=== PATIENT | female | born 1975 | race Caucasian/White ===

== ENCOUNTER 2018-06-03 14:03 | Emergency (ER) | payer OTHER ==
[2018-06-03 14:48] VITALS: BP 121/76
--- NOTE | 2018-06-03 15:01 | ED ---
Influenza-Like Illness - HPI Summary HPI Summary: Patient is a 42-year-old female with a history of "brain lesions." She states every time she gets a cold, she develops headache and had pain to the area of the lesions. She states she feels the lesions are in the occipital area as this is where she has majority of her pain when she has a cold. She does endorse sinus pressure and pain, however this has resolved. This morning she developed a cold sore and states this tends to happen when she has bad cold. She denies any fevers, sweats, chills. She denies any weakness. She endorses a 1/10 headache, intermittent and aching. - History of Current Complaint Chief Complaint: EDGeneral Time Seen by Provider: 06/03/18 14:18 Hx Obtained From: Patient Onset/Duration: Sudden Onset Severity: Mild Associated Signs & Symptoms: Headache - Risk Factors Influenza Risk Factors: Negative - Allergy/Home Medications Allergies/Adverse Reactions: Allergies Allergy/AdvReac Type Severity Reaction Status Date / Time clarithromycin Allergy Anaphylatic Verified 06/03/18 14:16 Shock levofloxacin [From Levaquin] Allergy See Comment Verified 06/03/18 14:16 sertraline [From Zoloft] Allergy GI Upset Verified 06/03/18 14:16 PMH/Surg Hx/FS Hx/Imm Hx Previously Healthy: Yes Infectious Disease History: No Infectious Disease History: Denies: Traveled Outside the [place] in Last 30 Days - Social History Occupation: Employed Full-time Lives: With Family Alcohol Use: None Hx Substance Use: No Substance Use Type: Reports: None Hx Tobacco Use: No Smoking Status (MU): Never Smoked Tobacco Review of Systems Negative: Fever, Chills, Fatigue, Skin Diaphoresis Negative: Palpitations, Chest Pain Negative: Shortness Of Breath, Cough Genitourinary: Negative Positive: no symptoms reported, see HPI Negative: Arthralgia, Myalgia Skin: Negative All Other Systems Reviewed And Are Negative: Yes Physical Exam Triage Information Reviewed: Yes Vital Signs On Initial Exam: Initial Vitals Temp Pulse Resp BP Pulse Ox 98.4 F 86 17 129/76 98 06/03/18 14:08 06/03/18 14:08 06/03/18 14:08 06/03/18 14:08 06/03/18 14:08 Vital Signs Reviewed: Yes Appearance: Positive: Well-Appearing, Well-Nourished Skin: Positive: Warm, Skin Color Reflects Adequate Perfusion Head/Face: Positive: Normal Head/Face Inspection Eyes: Positive: EOMI, HILL, Conjunctiva Clear ENT: Positive: TMs normal, Other - left upper lip cold sore. Negative: Pharyngeal erythema, Nasal congestion, Nasal drainage, Tonsillar swelling, Tonsillar exudate, Hoarse voice, Dental tenderness, Sinus tenderness Neck: Positive: Supple, Nontender Respiratory/Lung Sounds: Positive: Clear to Auscultation, Breath Sounds Present Cardiovascular: Positive: RRR, Pulses are Symmetrical in both Upper and Lower Extremities Musculoskeletal: Positive: Normal, Strength/ROM Intact Neurological: Positive: Speech Normal Psychiatric: Positive: Affect/Mood Appropriate AVPU Assessment: Alert Diagnostics - Vital Signs Vital Signs Temp Pulse Resp BP Pulse Ox 06/03/18 14:44 97.2 F 77 16 121/76 98 06/03/18 14:08 98.4 F 86 17 129/76 98 - Laboratory Lab Statement: Any lab studies that have been ordered have been reviewed, and results considered in the medical decision making process. Flu Symptom Course/Dx - Course Course Of Treatment: During the course of treatment, the patient's evaluated for diffuse headache rated a 1/10 intermittent and aching, most notably over the "brain lesion" area. She states when she develops a viral syndrome, they "attack" the brain lesions. She states she has also developed a cold sore to left side of the upper lip, which states is very common when she develops viral syndromes. She states acyclovir tends to improve her symptoms. On physical examination, patient appears well, lungs CTA, RRR, TMs without erythema, no pharyngeal erythema no LAD anterior cervical and postauricular. She is given a prescription for acyclovir and will f/u with PCP. - Diagnoses Differential Diagnosis/HQI/PQRI: Positive: Upper Respiratory Infection Provider Diagnoses: Oral herpes simplex infection Discharge - Sign-Out/Discharge Documenting (check all that apply): Patient Departure Patient Received Moderate/Deep Sedation with Procedure: No - Discharge Plan Condition: Stable Disposition: HOME Prescriptions: Acyclovir* [Zovirax 400 MG TAB*] 400 mg PO TID #21 tab Levothyroxine TAB* [Synthroid 150 MCG TAB*] 150 mcg PO DAILY #7 tab Patient Education Materials: Oral Herpes Simplex Virus Infections (ED) Additional Instructions: Take Acyclovir three times daily x 7 days Return to the ED if you develop any changing or worsening symptoms - Billing Disposition and Condition Condition: STABLE Disposition: Home
== END 2018-06-03 14:44 | disposition home or self-care (01) ==
LOC: ED 14:03
DX: B00.1 Herpesviral vesicular dermatitis (principal); Z86.011 Personal history of benign neoplasm of the brain
CPT/HCPCS: 99283

== ENCOUNTER 2018-06-08 12:34 | Emergency (ER) | payer OTHER ==
[2018-06-08] MEDS ORDERED: NS 0.9% 1000 ML** 1,000 ML IV.FLUID IV ONE (13:08)
[2018-06-08] MEDS ORDERED: Piperacillin/Tazobac ADVAN(*) 3.375 GM in NS 0.9% 100 ML* 100 ML IVPB ONE (13:18)
[2018-06-08] MEDS ORDERED: Vancomycin(*) 1,000 MG in NS 0.9% 250 ML* 250 ML IVPB ONE (13:18)
--- NOTE | 2018-06-08 13:22 | ED ---
Sepsis HPI - HPI Summary HPI Summary: Patient is a 42-year-old female presenting to the ED with a Saturday of complaints. Patient states she was seen for a sinus infection on Saturday and treated with antibiotics. She was also seen in the ED 5 days ago and was given to seek [facility] for a cold sore. She states despite the antibiotics, she continued to worsen. She was seen at urgent care originally because she stated she had a sinus infection which went to her "brain lesions" in her head. She was endorsing occipital headache, sinus pressure, cough, congestion. She is wheelchair bound. Triage: Pt states she was transplanted here from [place] but is now homeless. pt has many complaints about [place] and social work etc. pt is very manic and has not stopped talking since she came into triage. - History of Current Complaint Chief Complaint: EDUpperRespComplaint Time Seen by Provider: 06/08/18 13:08 Stated Complaint: LIGHT HEADED, GENERAL ILLNESS Hx Obtained From: Patient Onset/Duration: Started Hours Ago Timing: Constant Onset Severity: Severe Current Severity: Severe Pain Intensity: 5 Pain Scale Used: 0-10 Numeric Aggravating Symptom(s): Unknown Alleviating Factor(s): Unknown Associated Signs & Symptoms: Negative - Risk Factor(s) Pseudomonas Risk Factors: Negative Serious Bacterial Infection Risk Factors: Negative - Additional Pertinent History Oxygen Devices Used Prior to Hospitalization: None Recent Stress Test: No Have you ever had this problem before: Yes - Allergy/Home Medications Allergies/Adverse Reactions: Allergies Allergy/AdvReac Type Severity Reaction Status Date / Time clarithromycin Allergy Anaphylatic Verified 06/08/18 12:57 Shock levofloxacin [From Levaquin] Allergy See Comment Verified 06/08/18 12:57 sertraline [From Zoloft] Allergy GI Upset Verified 06/08/18 12:57 PMH/Surg Hx/FS Hx/Imm Hx Previously Healthy: Yes - Immunization History Hx Pertussis Vaccination: No Immunizations Up to Date: Yes Infectious Disease History: No Infectious Disease History: Denies: Traveled Outside the [place] in Last 30 Days - Social History Occupation: Unemployed, Disabled Lives: Alone - [employer] (homeless) Alcohol Use: None Hx Substance Use: No Substance Use Type: Reports: None Hx Tobacco Use: No Smoking Status (MU): Never Smoked Tobacco Review of Systems Positive: Fever, Chills, Fatigue, Skin Diaphoresis Negative: Blurred Vision, Diplopia, Drainage Negative: Dental Pain, Sore Throat Negative: Palpitations, Chest Pain Positive: Shortness Of Breath, Cough Positive: Nausea. Negative: Abdominal Pain, Vomiting, Diarrhea Genitourinary: Negative Positive: no symptoms reported, see HPI Negative: Arthralgia, Myalgia Skin: Negative Positive: Headache. Negative: Weakness, Paresthesia, Numbness Psychological: Normal All Other Systems Reviewed And Are Negative: Yes Physical Exam Triage Information Reviewed: Yes Vital Signs On Initial Exam: Initial Vitals Temp Pulse Resp BP Pulse Ox 103.4 F 131 18 147/122 99 06/08/18 12:46 06/08/18 12:46 06/08/18 12:46 06/08/18 12:46 06/08/18 12:46 Vital Signs Reviewed: Yes Appearance: Positive: Well-Appearing, Well-Nourished Skin: Positive: Warm, Skin Color Reflects Adequate Perfusion Head/Face: Positive: Normal Head/Face Inspection Eyes: Positive: EOMI, HILL, Conjunctiva Clear Neck: Positive: Supple, No Lymphadenopathy Respiratory/Lung Sounds: Positive: Clear to Auscultation, Breath Sounds Present Cardiovascular: Positive: RRR, Pulses are Symmetrical in both Upper and Lower Extremities Musculoskeletal: Positive: Normal, Strength/ROM Intact Neurological: Positive: Speech Normal Psychiatric: Positive: Normal, Affect/Mood Appropriate AVPU Assessment: Alert Diagnostics - Vital Signs Vital Signs Temp Pulse Resp BP Pulse Ox 06/08/18 12:46 103.4 F 131 18 147/122 99 - Laboratory Result Diagrams: 06/08/18 13:30 06/08/18 13:30 Lab Statement: Any lab studies that have been ordered have been reviewed, and results considered in the medical decision making process. Course/Dx - Course Course Of Treatment: Patient is a 42-year-old female presenting to the ED with a multitude of complaints. Patient appears to be much older than her stated age and she is wheelchair-bound. Patient has been seen twice in the past 5 days for sinus infections, colds were, head infection and continues to complain of her living arrangements. She is currently living at the [facility]. She is very manic on arrival and does not cease talking while attempting to ask questions. Poor historian as she remains tangential in her thoughts. Unable to ascertain a thorough history at this time. On arrival she is 103.4, pulse is 131, respirations 18 and 99% on RA. BP 147/122. Immediately on arrival we began septic protocol with 30cc/ml NS, zosyn and vancomycin ordered for sepsis of unknown origin and blood cultures obtained. Flu, strep, UA and chest xray obtained. Patient has been on amoxicillin x 5 days. Influenza positive. After 3 L fluids, Tylenol and ibuprofen, temp is noted to be 99.5, heart rate 105. Patient states she is feeling improved. She will be discharged home with influenza positive and is encouraged rest. RX Tamiflu to pharmacy. - Differential Dx/Clinical Impression Provider Diagnosis: Influenza A Discharge - Sign-Out/Discharge Documenting (check all that apply): Patient Departure Patient Received Moderate/Deep Sedation with Procedure: No - Discharge Plan Condition: Fair Disposition: HOME Referrals: Leana Rodriguez MD [Primary Care Provider] - - Billing Disposition and Condition Condition: FAIR Disposition: Home
[2018-06-08 13:36] LABS: ABS Basophils 0.1 10^3/ul (0-0.2); ABS Eosinophils 0 10^3/ul (0-0.6); ABS Lymphocytes 0.3 10^3/ul (1.0-4.8); ABS Monocytes 0.5 10^3/ul (0-0.8); ABS Neutrophils 5.3 10^3/ul (1.5-7.7); ABS Nucleated RBC 0 10^3/ul; Eosinophil % 0.4 %; Hematocrit 39 % (33-41); Hemoglobin 13.1 g/dL (12.0-16.0); Lymphocyte % 5.1 %; Mean Corpuscular HGB Conc 34 g/dL (31-36); Mean Corpuscular Hemoglobin 31 pg (27-31); Mean Corpuscular Volume 90 fL (80-97); Mean Platelet Volume 7.3 fL (7.4-10.4); Nucleated Red Blood Cells % 0; Platelet Count 305 10^3/uL (150-450); Red Blood Count 4.29 10^6 /uL (3.70-4.87); Red Cell Distribution Width 14 % (10.5-15); White Blood Count 6.1 10^3/uL (3.5-10.8)
[2018-06-08 13:54] LABS: Albumin 4.6 g/dL (3.2-5.2); Albumin/Globulin Ratio 1.6 (1-3); BUN/Creatinine Ratio 10.5 (8-20); Calcium 8.7 mg/dL (8.6-10.3); EGFR African American 140.1 (>60); EGFR Non-African American 115.8 (>60); Globulin 2.8 g/dL (2-4); Potassium 4.1 mmol/L (3.5-5.0); Total Bilirubin 0.1 mg/dL (0.2-1.0); Total Protein 7.4 g/dL (6.4-8.9)
[2018-06-08] MEDS ORDERED: Acetaminophen TAB* 325 MG PO ONE (14:05)
[2018-06-08] MEDS ORDERED: NS 0.9% 250 ML* 250 ML ONE (14:52)
[2018-06-08 15:06] LABS: Influenza A Molecular POSITIVE (Negative)
[2018-06-08] MEDS ORDERED: Oseltamivir CAP* 75 MG CAP PO ONE (15:40)
[2018-06-08] MEDS ORDERED: Ibuprofen TAB* 600 MG PO ONE (15:40)
[2018-06-08] MEDS ORDERED: Polyethylene Glycol 3350* 17 GM PACKET ONE (17:27)
[2018-06-08] MEDS ORDERED: Polyethylene Glycol 3350* 17 GM PACKET PO PRN (17:29)
[2018-06-08 17:35] VITALS: BP 159/73
== END 2018-06-08 17:23 | disposition home or self-care (01) ==
LOC: ED 12:34
DX: J11.1 Influenza due to unidentified influenza virus with other respiratory manifestations (principal); R42 Dizziness and giddiness; R50.9 Fever, unspecified; R06.02 Shortness of breath; R05 Cough; R51 Headache
CPT/HCPCS: 36415; 71046; 80053; 83605; 84484; 85025; 85610; 85730; 87040; 87651; 96365; 96375; 99283; A9270-GY; J2543; J3370